=== PATIENT | female | born 1945 | race Caucasian/White ===

== ENCOUNTER 2017-06-10 15:14 | Inpatient (IN) | payer OTHER ==
[~2017-06-10] VITALS: Ht 167.6 cm; Wt 81.6 kg
--- NOTE | ~2017-06-10 | H ---
[facility] [place] [address] HISTORY AND PHYSICAL Name: ADRIANNA MOSQUEDA Room #: 363-P [facility] IN .R.#: [id number] Admission: 06/10/17 Attend Phys: Naima Cuellar Discharge: Date of : 49 Report #: [id number] THIS REPORT FOR: //name// CC: Fletcher Narayanan DATE OF SERVICE: 06/10/2017 CHIEF COMPLAINT: Chest pain. HISTORY OF PRESENT ILLNESS: The patient is a 72-year-old female who was admitted through the Emergency Room with chest pain. She said over the last couple of days, she has had intermittent substernal pain in the lower sternal and upper epigastric area. She described it as a dull aching pain. She had no radiation of symptoms or any associated nausea, diaphoresis or radiation of symptoms. It was not necessarily associated with activity. Two days ago, she had an episode that lasted about 30 minutes early in the morning. Yesterday, she had intermittent symptoms that occurred through mid morning and early afternoon and she came to the Emergency Room. She reports a lot of "stress" recently and some GI symptoms with acid reflux lately. PAST MEDICAL HISTORY: Diabetes type 2, hypertension and chronic back pain syndrome. She follows with the pain clinic. PAST SURGICAL HISTORY: Hysterectomy, cholecystectomy, neuroma, lumbar fusion and cervical fusion. FAMILY HISTORY: Unknown. SOCIAL HISTORY: She has got a [id number] history of smoking. No chronic alcohol use. ALLERGIES: AUGMENTIN. MEDICATIONS: Morphine ER 15 mg q.i.d., Lantus 40 units at night, esterase, omeprazole, metformin 500 twice a day, Humalog with meals and atenolol. She stopped Lipitor previously. REVIEW OF SYSTEMS: She complains of back pain. Otherwise no headache, chest pain, shortness of breath, abdominal pain, nausea, vomiting, diarrhea, constipation, dysuria or syncope. PHYSICAL EXAMINATION: VITAL SIGNS: Temperature 36.8, pulse 66, respirations 18, blood pressure 153/58 and O2 sat 94% on room air. GENERAL: She is awake and alert, in no distress. LUNGS: Clear. [facility] [address] [place] [address] HISTORY AND PHYSICAL Name: ADRIANNA MOSQUEDA Room #: 363-P [facility] IN [facility]#: [id number] Admission: 06/10/17 Attend Phys: Naima Cuellar Discharge: Date of : 49 Report #: [id number] HEART: Regular. ABDOMEN: Soft, normoactive bowel sounds. EXTREMITIES: No edema. NEUROLOGIC: Intact. LABORATORY DATA: Troponin x 2 is negative. Other lab data unremarkable. Chest x-ray was negative. EKG, sinus rhythm, left atrial enlargement, borderline ECG. ASSESSMENT: 1. Chest pain. 2. Hypertension. 3. Diabetes type 2. 4. Tobacco use. PLAN: She is under a schedule for nuclear stress test today. The Cardiology Service is following her. We are holding her morphine until her study is completed. If that is unremarkable, then anticipate early discharge to home with continued outpatient followup. <ELECTRONICALLY SIGNED> By: Rubio Cruz MD 06/11/17 1243 0948 [id number] Rubio Cruz MD /nt
--- NOTE | ~2017-06-10 | EKG ---
[place] [address] [facility] [place] [address] ELECTROCARDIOGRAM REPORT Name: ADRIANNA MOSQUEDA Room #: 363-P [facility] IN M.R.#: [id number] Admission: 06/10/17 Attend Phys: Naima Cuellar Discharge: 06/11/17 Date of : 49 Report #: [id number] THIS REPORT FOR: //name// [facility] ED Test Date: 2017-06-10 Test Time: 15:23:55 Pat Name: ADRIANNA MOSQUEDA Department: Room: [facility] Gender: F Inbound Customer Service Representative: MZOOK : 1945 Requested By: Eligio Ricks Order Number: [id number] MD: Jim Funez Measurements Intervals [place] Rate: 83 P: 60 [place]: 149 QRS: -15 QRSD: 93 T: 2 QT: 389 QTc: 457 Interpretive Statements Sinus rhythm Borderline left axis deviation Poor R wave progression No previous ECG available for comparison Electronically Signed On 06-13-2017 13:24:26 CDT by Jim Funez [email or web address] <ELECTRONICALLY SIGNED> By: Jim Funez MD, [facility] 06/13/17 1324 1523 1523 Jim Funez MD, [facility] /EPI
--- NOTE | ~2017-06-10 | HC ---
[facility] [place] [address] CONSULTATION Name: ADRIANNA MOSQUEDA Naima Room #: 363-P [facility] IN ..#: [id number] Admission: 06/10/17 Attend Phys: Naima Cuellar Discharge: 06/11/17 Date of : 49 Report #: [id number] THIS REPORT FOR: //name// CC: Fletcher Narayanan DATE OF SERVICE: 06/11/2017 REASON FOR CONSULTATION: Chest pain. HISTORY OF PRESENT ILLNESS: This is a very pleasant 72-year-old female patient without prior history of chest discomfort, but did have a cardiac workup in [facility] about 5-6 years ago for an abnormal electrocardiogram consisting of PVCs. The patient states she had an episode of a dull sensation in her chest occurring at rest, which lasted approximately 20 minutes several days ago. She did not pay much attention to this until the day of admission when she had retrosternal discomfort which was longer. It was not severe in nature, was not associated with nausea, vomiting or diaphoresis. She denied any exertional component and it resolved on their own after several hours. She did not have any palpitations or did not feel lightheaded or dizzy. She has not had any significant lower extremity edema. She is a smoker and does have a family history of heart disease, but has never had any significant cardiac events or so. PAST MEDICAL HISTORY: 1. PVCs. 2. Chronic pain syndrome. 3. Acid peptic disease. 4. Diabetes mellitus. MEDICATIONS: At home are Lantus, Estrace, Glucophage, Humalog, Tenormin, Lipitor, Prevacid, Xanax, Robaxin, Say-Citrate, Dulcolax, Colace, vitamin. ALLERGIES: AMOXICILLIN AND AUGMENTIN. PAST SURGICAL HISTORY: Significant for: 1. Bilateral Sigala's neuroma removal. 2. L2-L3 fusion. 3. C4, C5, C6 fusion. 4. Cholecystectomy. 5. Hysterectomy. DIAGNOSTIC STUDIES: Electrocardiogram: Sinus rhythm, no acute changes. SOCIAL HISTORY: The patient does not smoke or use recreational drugs. Does not exercise regularly or follow dietary restriction. [facility] [address] [place] [address] CONSULTATION Name: ADRIANNA MOSQUEDA Naima Room #: 363-P [facility] IN ..#: [id number] Admission: 06/10/17 Attend Phys: Naima Cuellar Discharge: 06/11/17 Date of : 49 Report #: [id number] REVIEW OF SYSTEMS: Except for the symptoms previously mentioned and those commensurate with comorbid state, the 10-point review of systems is negative. LABORATORY DATA: Demonstrates potassium of 3.8, BUN and creatinine are 13 and 1.0. H and H is 15.2 and 44.3 with the platelet count 262,000. Troponins are less than 0.04. BNP is 111. PHYSICAL EXAMINATION: GENERAL: Well developed white female, resting comfortably, in no acute distress. VITAL SIGNS: Noted and reviewed in the chart. HEENT: Normocephalic, atraumatic. Pupils are equal, round, reactive to light and accommodation. Extraocular muscles are intact. Sclerae and conjunctivae are anicteric. NECK: JVD is normal. Carotid upstrokes are bilaterally symmetrical. No bruits are heard. No thyromegaly. No lymphadenopathy. LUNGS: Clear to auscultation. No wheezes, rhonchi or crackles. No CVA tenderness. CARDIAC: Demonstrates a regular rhythm. Normal first and second heart sounds. No ventricular or atrial gallops, no rubs noted. No murmurs. No lifts or heaves, PMI normal. ABDOMEN: Soft, nontender, nondistended. Normal bowel sounds. EXTREMITIES: Without cyanosis, clubbing or edema. Distal pulses are intact. DTR symmetrical. NEUROLOGIC: Cranial nerves 2-12 are grossly normal and symmetrical. PSYCHIATRIC: Alert, oriented with normal affect. SKIN: Warm and dry. IMPRESSION: 1. Atypical chest pain in an individual that has had a full workup several years ago. She is going to undergo perfusion scan today just to verify. She has been having significant amount of stress at home and that may be a factor according to her, but either way, we will see what the perfusion scan shows. 2. Dyslipidemia. We will continue current antihyperlipidemic medication. I did discuss the [place] [employer] step 1 diet with her and we will try and get a copy of my handout to her prior to discharge. 3. Diabetes mellitus. As per primary care. 4. Acid peptic disease, does not appear to be an issue at this juncture. <ELECTRONICALLY SIGNED> By: Jose L Christensen MD 06/20/17 1126 1317 0145 Jose L Christensen MD /nt
[~2017-06-10 15:14] MED LIST: ASPIRIN325 PO; BIOTIN2500 MCG PO; CALCIUM 600 +1 EAC1 PO; COLACE100 MG PO; DULCOLAX5 MG PO; ESTRACE1 MG PO; HUMALOG MI100 UNIT/2 SQ; LANTUS100 UNIT/M SUBQ; LIPITOR 20 MG T20 M1 PO; LUKAID GLA1 GM/1 ML PO; METFORMIN HCL500 MG PO; MORPHINE SULFAT15 M3 PO; MS CONTIN15 MG PO; MS CONTIN30 MG PO; MULTIVITAMINS1 EAC5 PO; PREVACID30 M2 PO; ROBAXIN 750 MG750 M1 PO; TENORMIN25 MG PO; XANAX 0.5 MG0.5 MG PO
[2017-06-10 15:15] VITALS: BP 142/81
[2017-06-10 15:36] LABS: BASOPHILS 0.7 % (0.0-2.0); EOSINOPHILS 0.4 % (0.0-3.0); HEMATOCRIT 44.3 % (37.0-47.0); HEMOGLOBIN 15.2 gm/dL (12.0-15.0); LYMPHOCYTES 15.5 % (24.0-44.0); MCH 30.4 pg (26.0-34.0); MCHC 34.4 g/dL (28.0-37.0); MCV 88.4 fL (80.0-100.0); MONOCYTES 5.1 % (1.0-8.0); PLATELET COUNT 262 thou/uL (150-400); POLYS 78.3 % (36.0-66.0); RBC 5.01 mil/uL (4.20-5.00); RDW 12.7 % (10.5-14.5); WBC 10.2 thou/uL (4.0-11.0)
[2017-06-10 15:43] LABS: ANION GAP 12 mmol/L (7-16); BUN 13 mg/dL (7-18); CALCIUM 9.7 mg/dL (8.5-10.1); CHLORIDE 98 mmol/L (98-107); CO2 25 mmol/L (21-32); GLUCOSE 352 mg/dL (74-106); POTASSIUM 3.8 mmol/L (3.5-5.1); SODIUM 135 mmol/L (136-145)
[2017-06-10] MEDS ORDERED: OMEPRAZOLE20 M2 PO (15:50)
[2017-06-10 15:52] LABS: TROPONIN-I < 0.04 ng/mL (<0.06)
[2017-06-10 17:02] VITALS: BP 122/72
[2017-06-11 00:05] VITALS: BP 128/68
[2017-06-11 05:05] VITALS: BP 123/67
[2017-06-11 08:31] VITALS: BP 153/58
[2017-06-11 17:11] VITALS: BP 138/69
[2017-06-11 18:38] VITALS: BP 138/69
== END 2017-06-11 18:47 | disposition home or self-care (01) | DRG 313 ==
LOC: ER 15:14 → EROBS 16:55 → 3W 16:55
PROVIDERS: Nurse Practitioner
DX: R07.89 Other chest pain (principal); I24.9 Acute ischemic heart disease, unspecified; E78.5 Hyperlipidemia, unspecified; G89.4 Chronic pain syndrome; K30 Functional dyspepsia; Z90.710 Acquired absence of both cervix and uterus; Z90.49 Acquired absence of other specified parts of digestive tract; Z88.1 Allergy status to other antibiotic agents; Z88.8 Allergy status to other drugs, medicaments and biological substances; Z87.891 Personal history of nicotine dependence
CPT/HCPCS: 10879